=== PATIENT | female | born 1955 | race African-American/Black ===

== ENCOUNTER 2017-01-15 09:19 | Emergency (ER) | payer OTHER ==
[~2017-01-15 09:19] MED LIST: IBUPROFEN800 MG PO; LORTAB 5/500 TA1 TA1 PO; PREDNISONE50 MG PO
== END 2017-01-15 09:56 | disposition home or self-care (01) ==
LOC: CED 09:19
DX: M79.81 Nontraumatic hematoma of soft tissue (principal); J44.9 Chronic obstructive pulmonary disease, unspecified; F17.210 Nicotine dependence, cigarettes, uncomplicated; Z88.5 Allergy status to narcotic agent; Z88.8 Allergy status to other drugs, medicaments and biological substances
CPT/HCPCS: 99282

== ENCOUNTER 2017-03-15 20:21 | Emergency (ER) | payer OTHER | END 2017-03-15 22:30 | disposition home or self-care (01) | LOC: CED 20:21 | DX: Z53.21 Procedure and treatment not carried out due to patient leaving prior to being seen by health care provider (principal) ==

== ENCOUNTER 2017-03-16 07:59 | Emergency (ER) | payer OTHER | END 2017-03-16 09:53 | disposition home or self-care (01) | LOC: CED 07:59 | DX: J40 Bronchitis, not specified as acute or chronic (principal); I10 Essential (primary) hypertension; F17.210 Nicotine dependence, cigarettes, uncomplicated; Z88.5 Allergy status to narcotic agent; Z88.8 Allergy status to other drugs, medicaments and biological substances | CPT/HCPCS: 99282 ==